=== PATIENT | female | born 1940 ===

== ENCOUNTER 2018-10-03 08:22 | Outpatient (CLI) | payer OTHER ==
[~2018-10-03] VITALS: Ht 152.4 cm; Wt 66.2 kg
== END 2018-10-03 08:40 | disposition home or self-care (01) ==
LOC: OFIC 805 08:22
DX: H93.13 Tinnitus, bilateral (principal); H90.3 Sensorineural hearing loss, bilateral; R42 Dizziness and giddiness

== ENCOUNTER 2018-11-07 09:15 | Outpatient (CLI) | payer OTHER ==
[~2018-11-07] VITALS: Ht 152.4 cm; Wt 66.2 kg
== END 2018-11-07 09:30 | disposition home or self-care (01) ==
LOC: OFIC 805 09:15
DX: H90.3 Sensorineural hearing loss, bilateral (principal); H93.13 Tinnitus, bilateral; R42 Dizziness and giddiness; H61.23 Impacted cerumen, bilateral; J31.0 Chronic rhinitis; H61.321 Acquired stenosis of right external ear canal secondary to inflammation and infection

== ENCOUNTER 2021-01-23 09:53 | Outpatient (CLI) | payer OTHER | END 2021-01-23 10:01 | disposition home or self-care (01) | LOC: TOM 09:53 | PROVIDERS: ATTEND Internal Medicine Gastroenterology | DX: K80.80 Other cholelithiasis without obstruction (principal); K57.30 Diverticulosis of large intestine without perforation or abscess without bleeding; R10.32 Left lower quadrant pain; Z12.11 Encounter for screening for malignant neoplasm of colon; K57.90 Diverticulosis of intestine, part unspecified, without perforation or abscess without bleeding ==